=== PATIENT | female | born 1945 | race Caucasian/White ===

== ENCOUNTER → 2016-07-06 | Day surgery (SDC) | payer MEDICARE, BC ==
[~2016-07-06] MED LIST: ACET325 PO; AMLO5TAB96 PO; BUPIVACAINE/EPINEPHRINE 0.5% PF 30 ML VIAL ONE; CYMB60CA PO; DARV PO; DIOV320T PO; ESTR2TAB PO; LACTATED RINGER'S 1000 ML INJ 1,000 ML ONE; MIDAZOLAM HCL 2 MG/2 ML VIAL ONE; NAPR550 PO; NEUR100C PO; ONDANSETRON HCL 4 MG/2 ML VIAL IV PUSH ONE; PROPOFOL 100 MG/10 ML INJ IV ONE; ROBA750T3 PO; ceFAZolin 2 GM PREMIX 50 ML ONE
--- NOTE | 2016-07-07 20:20 | MP ---
cc: OTILIO SHAW MD DATE OF SURGERY 07/06/2016 PREOPERATIVE DIAGNOSIS Right knee medial and lateral meniscus tear. POSTOPERATIVE DIAGNOSIS Right knee medial and lateral meniscus tear. PROCEDURE Right knee arthroscopic partial medial and partial lateral meniscectomy. ANESTHESIA General SURGEON Ramandeep Shaw MD ESTIMATED BLOOD LOSS Minimal DRAINS None. SPECIMEN Fragments discarded. COMPLICATIONS None known. 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 Risks, benefits and options of treatment were thoroughly discussed and a detailed informed consent was obtained. PROCEDURE IN DETAIL The patient was brought to the operating room. She was placed under general anesthetic. Right lower extremity was draped and prepped in usual sterile fashion. IV antibiotics were given. Time-out was completed. Inferolateral portal made. Blunt trocar used to introduce the cannula. Inferomedial portal made. The patellofemoral joint appeared normal. We visualized the medial compartment. A substantial amount of tearing was noted at the mid body and posterior horn of the medial meniscus representing 75% of the thickness of the meniscus at the apex of the tear. We proceeded with arthroscopic partial medial meniscectomy using a combination of basket forceps and arthroscopic shaver. Eventually, we switched over switching stick and brought the shaver in from the lateral side and make the transition from the anterior horn to the body. We visualized the ACL and photographed that. We went into the lateral compartment, identified mid body anterior horn and posterior horn tears and proceeded with arthroscopic partial lateral meniscectomy and switched over switching stick and fine-tuned and smoothed and then took our followup photographs here. We did obtain hemostasis with the use of electrocautery with the concept cautery, fine-tuned the medial compartment and a repeat diagnostic arthroscopy to the lateral portal revealed no loose bodies. Arthroscopic equipment was removed. Marcaine injected. Steri-Strips applied. Sterile dressing applied. The patient was awaken, return to recovery room in stable condition. MD MERISSA Allred/ /4:42 PM /8:15 PM
== END | disposition home or self-care (01) ==
LOC: ESDC 13:34
PROVIDERS: ATTEND Orthopaedic Surgery Sports Medicine
DX: S83.241A Other tear of medial meniscus, current injury, right knee, initial encounter (principal); S83.281A Other tear of lateral meniscus, current injury, right knee, initial encounter
CPT/HCPCS: 01400; 29880; J0690; J2250; J2405; J3010; J7120